=== PATIENT | female | born 1945 | race Caucasian/White ===

== ENCOUNTER → 2020-09-22 | Outpatient (CLI) | payer OTHER ==
--- NOTE | 2020-09-22 15:51 | REP ---
INDICATION: DDD LUMBAR ? STENOSIS. COMPARISON: None. TECHNIQUE: Multiple sequences obtained in the sagittal axial planes. FINDINGS: There is a prominent Schmorl's node at the superior endplate of T11. No acute edema is seen. A small Schmorl's node is seen at the superior endplate of L2. There is anterolisthesis of L4 on L5 approximately 4 mm. Conus is unremarkable. At L1-2 there is mild diffuse disc bulging. There is mild facet arthropathy. There is no spinal stenosis or significant foraminal narrowing. At L2-3 there is mild diffuse disc bulging laterally. There is moderate facet hypertrophy. There is no significant spinal stenosis or foraminal narrowing. At L3-4 there is mild diffuse disc bulging. There is moderate facet arthropathy with hypertrophy of ligamentum flavum. There is urmr-to-zmhxzwlo narrowing of the spinal canal. Mild bilateral foraminal narrowing. At L4-5 there is mild diffuse disc bulging. There is moderate facet arthropathy. There is hypertrophy of the ligamentum flavum. There is mild narrowing of the spinal canal. There is mild bilateral foraminal narrowing. At L5-S1 there is mild diffuse disc bulging. This appears somewhat greater on the right laterally. There is moderate bilateral foraminal narrowing. There is thickening of the ligamentum flavum. Incidental note is made of small bilateral renal cysts. IMPRESSION: Diffuse disc bulging at all levels. [id number] spinal stenosis at L3-4. Mild bilateral foraminal narrowing at L3-4 and L4-5. Moderate to severe bilateral foraminal narrowing at L5-S1. A preliminary report was provided by [facility] at the time of the exam. <Electronically signed by Sung Leary > 09/22/20 [id number]
== END ==
LOC: M PLARAD 13:41
PROVIDERS: ATTEND Physician Assistant
DX: M51.36 Other intervertebral disc degeneration, lumbar region (principal)